=== PATIENT | male | born 1965 | race Caucasian/White ===

== ENCOUNTER 2020-07-31 08:38 | Emergency (ER) | payer BC ==
--- NOTE | 2020-07-31 08:54 | EDM.PDOC ---
ED HPI GENERAL MEDICAL PROBLEM - General Chief Complaint: Chest Pain Stated Complaint: R sided chest pain Time Seen by Provider: 07/31/20 08:45 Source of Information: Reports: Patient History Limitations: Reports: No Limitations - History of Present Illness INITIAL COMMENTS - FREE TEXT/NARRATIVE: He presents to the emergency department by private vehicle for evaluation of pain in the right side of his neck and some pain in the center of his chest. He describes the chest pain like a potato chip caught in his esophagus. No squeezing pain. No radiating pain. No chest heaviness. Pain started 2 days ago and has been unchanged since that time. He does not change with activity or position. No numbness or tingling in the arms or hands. No nausea or vomiting. No history of coronary artery disease. No diabetes or hypertension. No hyperlipidemia. He is also complaining of pain in the posterior neck on the right side. He describes a constant aching pain. Somewhat worse with forward flexion of his head. Pain does not radiate into the back or arms. No headache. No injury that he is aware of. No recent change in activity. This pain also started 2 days ago. He is here this morning because he did not have to work. He has a history of asthma uses an inhaler regularly. No other regular medications. No known drug allergies. He is a non-smoker. - Related Data Allergies Allergy/AdvReac Type Severity Reaction Status Date / Time No Known Allergies Allergy Verified 07/31/20 08:44 Home Meds: Home Meds Albuterol Sulfate [Albuterol Sulfate Hfa] 1 - 2 puff IH Q4HR PRN 07/31/20 [History] Diclofenac Sodium 75 mg PO DAILY 07/31/20 [History] ED ROS GENERAL - Review of Systems Review Of Systems: See Below Constitutional: Reports: Chills (Allen chills last night. None today.). Denies: Fever, Weakness, Fatigue HEENT: Denies: Ear Discharge, Ear Pain, Rhinitis, Sinus Problem, Vision Change Respiratory: Denies: Shortness of Breath, Wheezing, Pleuritic Chest Pain, Cough Cardiovascular: Reports: Chest Pain (See HPI). Denies: Syncope Endocrine: Denies: Fatigue GI/Abdominal: Denies: Abdominal Pain, Nausea, Vomiting Musculoskeletal: Reports: Neck Pain Skin: Denies: Rash Neurological: Denies: Dizziness, Headache, Numbness, Tingling Psychiatric: Denies: Anxiety, Depression ED EXAM, GENERAL - Physical Exam Exam: See Below Exam Limited By: No Limitations General Appearance: Alert, WD/WN, No Apparent Distress Ears: Normal External Exam, Normal Canal, Hearing Grossly Normal, Normal TMs Nose: Normal Inspection, Normal Mucosa Throat/Mouth: Normal Inspection, Normal Oropharynx, No Airway Compromise Head: Atraumatic, Normocephalic Neck: Supple, Full Range of Motion, Other (Mild tenderness in the right paracervical muscles. Mild diffuse tightness in the right paracervical muscles. No spinal tenderness. No left-sided tightness or tenderness.). No: Lymphadenopathy (L), Lymphadenopathy (R) Respiratory/Chest: No Respiratory Distress, Normal Breath Sounds, Wheezing (Occasional end expiratory wheeze.). No: Rales, Rhonchi Cardiovascular: Regular Rate, Rhythm, No Edema, No Murmur GI/Abdominal: Normal Bowel Sounds, Soft, Non-Tender Neurological: Alert, Oriented, Normal Cognition Psychiatric: Normal Affect, Normal Mood Skin Exam: Warm, Dry #1 Interpretation EKG Date: 07/31/20 Rhythm: NSR [place]: Normal P-Wave: Present QRS: Normal ST-T: Normal QT: Normal Comparison: NA - No Prior EKG EKG Interpretation Comments: Normal EKG Course - Vital Signs Text/Narrative:: Patient was comfortable throughout the emergency department stay. He was given 60 mg of Toradol for the pain which was helpful. EKG was negative and labs were unremarkable. No indication of cardiac etiology. Apparent myofascial neck pain on the right side. Probable acid reflux as well. Last Recorded V/S: Last Vital Signs Temp 36.8 C 07/31/20 08:40 Pulse 68 07/31/20 08:40 Resp 16 07/31/20 08:40 BP 126/84 07/31/20 08:40 Pulse Ox 98 07/31/20 08:40 - Orders/Labs/Meds Orders: Active Orders 24 hr Category Date Time Status EKG Documentation Completion [RC] ASDIRECTED Care 07/31/20 08:47 Active CULTURE STREP A CONFIRMATION [RM] Stat Lab 07/31/20 09:17 Results STREP SCRN A RAPID W CULT CONF [] Stat Lab 07/31/20 09:17 Results Sodium Chloride 0.9% [Saline Flush] Med 07/31/20 09:32 Active 10 ml FLUSH ASDIRECTED PRN Saline Lock Insert [OM.PC] Routine Oth 07/31/20 09:32 Ordered EKG 12 Lead [EK] Stat Ther 07/31/20 08:47 Ordered Medication Orders Sodium Chloride (Saline Flush) 10 ml FLUSH ASDIRECTED PRN PRN Reason: Keep Vein Open Last Admin: 07/31/20 09:33 Dose: 10 ml Documented by: BREN Labs: Laboratory Tests 07/31/20 07/31/20 Range/Units 08:50 08:50 WBC 11.7 H (4.0-10.2) K/uL RBC 4.71 (4.33-5.41) M/uL Hgb 14.0 (13.1-16.8) g/dL Hct 41.1 (39.0-49.0) % MCV 87.3 (84.0-98.0) fL MCH 29.7 (28.2-33.3) pg MCHC 34.1 (31.7-36.0) g/dL RDW 12.7 (11.2-14.1) % Plt Count 188 (150-350) K/uL Neut % (Auto) 68.0 (45.0-80.0) % Lymph % (Auto) 22.1 (10.0-50.0) % Grady % (Auto) 7.9 (2.0-14.0) % Eos % (Auto) 1.7 (0.0-5.0) % Baso % (Auto) 0.3 (0.0-2.0) % Neut # (Auto) 7.96 H (1.40-7.00) K/uL Lymph # (Auto) 2.59 (0.50-3.50) K/uL Grady # (Auto) 0.93 (0.00-1.00) K/uL Eos # (Auto) 0.20 (0.00-0.50) K/uL Baso # (Auto) 0.03 (0.00-0.20) K/uL Sodium 138 (136-145) mmol/L Potassium 4.1 (3.5-5.1) mmol/L Chloride 102 (98-107) mmol/L Carbon Dioxide 27.5 (21.0-32.0) mmol/L BUN 12 (7-18) mg/dL Creatinine 0.97 (0.51-1.17) mg/dL Est Cr Clr Drug Dosing TNP Estimated GFR (MDRD) > 60 mL/min Glucose 105 (74-106) mg/dL Calcium 9.0 (8.5-10.1) mg/dL Total Bilirubin 1.0 (0.2-1.0) mg/dL AST 13 L (15-37) U/L ALT 33 (12-78) U/L Alkaline Phosphatase 82 (46-116) IU/L Creatine Kinase 83 (26-308) U/L Creatine Kinase Index 0.2 (0.0-2.5) % CK-MB (CK-2) 0.20 (0.00-3.60) ng/mL Troponin I 0.000 (0.000-0.056) ng/mL Total Protein 7.4 (6.4-8.2) g/dL Albumin 3.7 (3.4-5.0) g/dL Meds: Medications Generic Name Dose Route Start Last Admin Trade Name Freq PRN Reason Stop Dose Admin Sodium Chloride 10 ml 07/31/20 09:32 07/31/20 09:33 Saline Flush FLUSH 10 ml ASDIRECTED PRN Administration Keep Vein Open Discontinued Medications Generic Name Dose Route Start Last Admin Trade Name Freq PRN Reason Stop Dose Admin Ketorolac Tromethamine 30 mg 07/31/20 09:26 07/31/20 09:29 Toradol IVPUSH 07/31/20 09:27 30 mg ONETIME ONE Administration Departure - Departure Time of Disposition: 09:50 Disposition: Home, Self-Care 01 Condition: Good Clinical Impression: Neck pain on right side, GERD (gastroesophageal reflux disease) - Discharge Information *PRESCRIPTION DRUG MONITORING PROGRAM REVIEWED*: Not Applicable *COPY OF PRESCRIPTION DRUG MONITORING REPORT IN PATIENT MICHELE: Not Applicable Instructions: Gastroesophageal Reflux Disease, Adult, [id number], Nonspecific Chest Pain, Adult, [id number] Referrals: Jareth Parker PA [Primary Care Provider] - Forms: ED Department Discharge Additional Instructions: Neck stretches at least twice daily. Continue with the diclofenac twice daily. Tylenol as needed for additional pain control. Omeprazole 20 mg daily for the next week. Follow-up with primary provider if not improving. Sepsis Event Note (ED) - Focused Exam Vital Signs: Vital Signs Temp Pulse Resp BP Pulse Ox 07/31/20 08:40 36.8 C 68 16 126/84 98 - My Orders Last 24 Hours: My Active Orders 07/31/20 08:47 EKG Documentation Completion [RC] ASDIRECTED EKG 12 Lead [EK] Stat 07/31/20 09:17 CULTURE STREP A CONFIRMATION [RM] Stat STREP SCRN A RAPID W CULT CONF [RM] Stat 07/31/20 09:32 Sodium Chloride 0.9% [Saline Flush] 10 ml FLUSH ASDIRECTED PRN Saline Lock Insert [OM.PC] Routine - Assessment/Plan Last 24 Hours: My Active Orders 07/31/20 08:47 EKG Documentation Completion [RC] ASDIRECTED EKG 12 Lead [EK] Stat 07/31/20 09:17 CULTURE STREP A CONFIRMATION [RM] Stat STREP SCRN A RAPID W CULT CONF [RM] Stat 07/31/20 09:32 Sodium Chloride 0.9% [Saline Flush] 10 ml FLUSH ASDIRECTED PRN Saline Lock Insert [OM.PC] Routine
[2020-07-31 09:20] LABS: CHLORIDE,CL 102 mmol/L (98-107); SODIUM,NA 138 mmol/L (136-145)
[2020-07-31] MEDS ORDERED: Ketorolac 30 MG/ML SDV IVPUSH ONE (09:26)
[2020-07-31] MEDS ORDERED: Sodium Chloride 0.9% 10 ML Syringe FLUSH PRN (09:32)
== END 2020-07-31 10:20 | disposition home or self-care (01) ==
LOC: LL.ED 08:38
DX: M54.2 Cervicalgia (principal); K21.9 Gastro-esophageal reflux disease without esophagitis
CPT/HCPCS: 36415; 80053; 82550; 82553; 84484; 85025; 87081; 87430; 93005; 96374; 99285; J1885; 93010; 99283

== ENCOUNTER 2021-05-09 10:07 | Emergency (ER) | payer OTHER, BC ==
[2021-05-09] MEDS ORDERED: Bupivacaine 0.5% 10 ML SDV INJECT ONE (11:10)
[2021-05-09] MEDS ORDERED: Diphtheria,Pertussis(Acell),Tetanus Vaccine 0.5 ML Syringe IM ONE (11:26)
--- NOTE | 2021-05-09 11:36 | EDM.PDOC ---
ED HPI GENERAL MEDICAL PROBLEM - General Chief Complaint: Upper Extremity Injury/Pain Stated Complaint: left middle finger crush injury Time Seen by Provider: 05/09/21 10:40 Source of Information: Reports: Patient History Limitations: Reports: No Limitations - History of Present Illness INITIAL COMMENTS - FREE TEXT/NARRATIVE: left middle finger crush injury to distal portion of finger. Working at [employer] when injured. Laceration. No deformity/loss of function. 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(s) Right Finger-Middle Pain Score (Numeric/FACES): 2 - Related Data Allergies Allergy/AdvReac Type Severity Reaction Status Date / Time Iodinated Contrast Media Allergy Hives Verified 05/09/21 10:08 iodine Allergy Hives Verified 05/09/21 10:08 shellfish derived Allergy Hives Verified 05/09/21 10:08 Home Meds: Home Meds Albuterol Sulfate [Albuterol Sulfate Hfa] 1 - 2 puff IH Q4HR PRN 07/31/20 [History] Diclofenac Sodium 75 mg PO DAILY 07/31/20 [History] cephALEXin [Keflex] 500 mg PO Q8H #21 cap 05/09/21 [Rx] Past Medical History Respiratory History: Reports: Asthma Musculoskeletal History: Reports: Fracture Other Musculoskeletal History: bilat rib fractures, bone spurs to right foot/great toe Neurological History: Reports: Concussion - Past Surgical History HEENT Surgical History: Reports: Oral Surgery Other HEENT Surgeries/Procedures: top and bottom dentures Musculoskeletal Surgical History: Reports: Other (See Below) Other Musculoskeletal Surgeries/Procedures:: bone spurs to right foot/great toe/surgery hard pacheco plate and pins Social & Family History - Tobacco Use Tobacco Use Status *Q: Current Every Day Tobacco User Years of Tobacco use: 30 Packs/Tins Daily: 0.2 Used Tobacco, but Quit: No Second Hand Smoke Exposure: No - Caffeine Use Caffeine Use: Reports: Coffee, Tea - Recreational Drug Use Recreational Drug Use: No Review of Systems - Review of Systems Review Of Systems: See Below Constitutional: Reports: No Symptoms Eyes: Reports: No Symptoms Ears: Reports: No Symptoms Nose: Reports: No Symptoms Mouth/Throat: Reports: No Symptoms Respiratory: Reports: No Symptoms Cardiovascular: Reports: No Symptoms GI/Abdominal: Reports: No Symptoms Musculoskeletal: Reports: Other (Left middle finger injury) Skin: Reports: Other (laceration left middle finger) Neurological: Reports: No Symptoms Psychiatric: Reports: No Symptoms ED EXAM, GENERAL - Physical Exam Exam: See Below Exam Limited By: No Limitations General Appearance: Alert, WD/WN, No Apparent Distress Eye Exam: Bilateral Eye: EOMI, PERRL Ears: Hearing Grossly Normal Nose: No: Nasal Deformity, Nasal Swelling, Nasal Drainage Throat/Mouth: Normal Lips, Normal Voice, No Airway Compromise Head: Atraumatic, Normocephalic Neck: Supple Respiratory/Chest: No Respiratory Distress Peripheral Pulses: 2+: Radial (L) Extremities: Normal Capillary Refill, Other (Laceration distal left middle finger/no deformity/nail intact/tendon function intact.) Neurological: Alert, Oriented, Normal Cognition, No Motor/Sensory Deficits Psychiatric: Normal Affect, Normal Mood Skin Exam: Warm, Normal Color ED TRAUMA EXTREMITY PROCEDURES - Laceration/Wound Repair Dorsal Lac/Wound Length In cm: 2 Appearance: Subcutaneous, Irregular, Clean Distal NVT: Neuro & Vascular Intact, No Tendon Injury Anesthetic Type: Digital Local Anesthesia - Lidocaine (Xylocaine): 1% Plain Local Anesthesia - Bupivicaine (Marcaine): 0.5% Plain Local Anesthetic Volume: Other (3cc of mixture injected into base of each side of the affected finger) Skin Prep: Providone-Iodine (Betadine) Exploration/Debridement/Repair: Wound Explored, In a Bloodless Field, Explored to Base, No Foreign Material Found Closed With: Sutures Suture Size: 4-0 # of Sutures: 3 Suture Type: Interrupted Sterile Dressing Applied: Nurse Tetanus Status Addressed: Yes Complications: No Left Ventral Digit - 3rd (Middle) Lac/Wound Length In cm: 1 Appearance: Subcutaneous, Irregular, Clean Distal NVT: Neuro & Vascular Intact, No Tendon Injury Anesthetic Type: Digital (see above) Skin Prep: Providone-Iodine (Betadine) Exploration/Debridement/Repair: Wound Explored, In a Bloodless Field, Explored to Base, No Foreign Material Found Closed With: Sutures Suture Size: 3-0 # of Sutures: 1 Suture Type: Interrupted Sterile Dressing Applied: Nurse Tetanus Status Addressed: Yes Complications: No Course - Vital Signs Last Recorded V/S: Last Vital Signs Temp 37.2 C 05/09/21 10:16 Pulse 63 05/09/21 10:16 Resp 14 05/09/21 10:16 BP 146/92 H 05/09/21 10:16 Pulse Ox 100 05/09/21 10:16 - Orders/Labs/Meds Orders: Active Orders 24 hr Category Date Time Status Vaccine to be Administered/Admin Charge [RC] ASDIRECTED Care 05/09/21 11:26 Active Fingers Third Digit Lt F2 [CR] Stat Exams 05/09/21 10:20 Taken Meds: Medications Discontinued Medications Generic Name Dose Route Start Last Admin Trade Name Brunoq PRN Reason Stop Dose Admin Bupivacaine HCl 10 ml 05/09/21 11:10 05/09/21 11:18 Bupivacaine 0.5% 10 Ml Sdv INJECT 05/09/21 11:11 10 ml ONETIME ONE Administration Diphtheria/Tetanus/Acell Pertussis 0.5 ml 05/09/21 11:26 05/09/21 11:52 Diphtheria,Pertussis(Acell),Tetanus Vaccine 0.5 Ml Syringe IM 05/09/21 11:27 0.5 ml .ONCE ONE Administration Lidocaine HCl 5 ml 05/09/21 11:10 05/09/21 11:18 Lidocaine 1% 5 Ml Sdv INJECT 05/09/21 11:11 5 ml ONETIME ONE Administration - Re-Assessments/Exams Free Text/Narrative Re-Assessment/Exam: 05/09/21 11:25 Digital block administered for anesthesia. Xray confirmed minimally displaced fracture of distal phalanx. Tetanus ordered. 05/09/21 12:21 Laceration repaired. Wound care reviewed. Wound check with PCP in 2-3 days. Further restrictions as needed to be determined at that time. Departure - Departure Time of Disposition: 12:07 Disposition: Home, Self-Care 01 Condition: Good Clinical Impression: Crushing injury of left middle finger, initial encounter Fracture, finger, distal phalanx, open Qualifiers: Encounter type: initial encounter Finger: middle finger Fracture alignment: nondisplaced Laterality: left Qualified Code(s): S62.663B - Nondisplaced fracture of distal phalanx of left middle finger, initial encounter for open fracture - Discharge Information *PRESCRIPTION DRUG MONITORING PROGRAM REVIEWED*: Not Applicable *COPY OF PRESCRIPTION DRUG MONITORING REPORT IN PATIENT MICHELE: Not Applicable Prescriptions: cephALEXin [Keflex] 500 mg PO Q8H #21 cap Instructions: VIS, DTaP (Diphtheria, Tetanus, Pertussis) Vaccine - CDC (09/10/2019), Crush Injury of the Hand, [id number], Sutured Wound Care, [id number] Referrals: Jareth Parker PA [Primary Care Provider] - Forms: ED Department Discharge Additional Instructions: Follow up Sunday afternoon or morning with you primary clinic and have them recheck your finger. They can determine further work restrictions at that time. Take the antibiotic for 7 days. Follow up as needed if you have any problems/concerns such as signs of infection. Sepsis Event Note (ED) - Evaluation Sepsis Screening Result: No Definite Risk - Focused Exam Vital Signs: Vital Signs Temp Pulse Resp BP Pulse Ox 05/09/21 10:16 37.2 C 63 14 146/92 H 100 - My Orders Last 24 Hours: My Active Orders 05/09/21 10:20 Fingers Third Digit Lt F2 [CR] Stat 05/09/21 11:26 Vaccine to be Administered/Admin Charge [RC] ASDIRECTED - Assessment/Plan Last 24 Hours: My Active Orders 05/09/21 10:20 Fingers Third Digit Lt F2 [CR] Stat 05/09/21 11:26 Vaccine to be Administered/Admin Charge [RC] ASDIRECTED
== END 2021-05-09 12:18 | disposition home or self-care (01) ==
LOC: LL.ED 10:07
DX: S67.193A Crushing injury of left middle finger, initial encounter (principal); S62.663B Nondisplaced fracture of distal phalanx of left middle finger, initial encounter for open fracture; J45.909 Unspecified asthma, uncomplicated; Z23 Encounter for immunization; Z72.0 Tobacco use; Z91.041 Radiographic dye allergy status; Z88.8 Allergy status to other drugs, medicaments and biological substances; Z91.013 Allergy to seafood; W23.0XXA Caught, crushed, jammed, or pinched between moving objects, initial encounter; Y92.89 Other specified places as the place of occurrence of the external cause; Y99.0 Civilian activity done for income or pay
CPT/HCPCS: 12002; 73140-F2; 90471; 90715; 99283; 99283-25; J3490

== ENCOUNTER → 2022-03-28 | Emergency (ER) | payer OTHER, BC ==
[2022-04-14 10:28] LABS: ANION GAP 13.7 meq/L (7-15); CHLORIDE,CL 104 mmol/L (98-107); SODIUM,NA 141 mmol/L (136-145)
[2022-04-14 10:29] LABS: ESTIMATED GFR 78 mL/min (>=60)
== END ==
LOC: LL.ED 14:30
DX: S82.842A Displaced bimalleolar fracture of left lower leg, initial encounter for closed fracture (principal); M19.90 Unspecified osteoarthritis, unspecified site; J45.909 Unspecified asthma, uncomplicated; W18.30XA Fall on same level, unspecified, initial encounter
CPT/HCPCS: 29515; 36415; 73600-LT; 80053; 85025; 96361; 96374; 96375; 99283-25